=== PATIENT | female | born 1955 | race Caucasian/White ===

== ENCOUNTER 2016-11-10 08:42 | Emergency (ER) | payer BC ==
--- NOTE | 2016-11-10 09:11 | UC ---
Throat Pain/Nasal [place] HPI - HPI Summary HPI Summary: Patient started with 5 days of sore throat, symptoms now include sinus congestion and muffled hearing in the right ear. doesnt think she has had a fever, but no energy. - History of Current Complaint Stated Complaint: SORE THROAT, RESPIRATORY Time Seen by Provider: 11/10/16 09:00 Hx Obtained From: Patient ?: No Onset/Duration: Sudden Onset, Lasting Days Severity: Severe Associated Signs & Symptoms: Positive: Dysphagia, Hoarseness, Sinus Discomfort, Nasal Discharge - Epiglottits Risk Factors Epiglottis Risk Factors: Negative - Allergies/Home Medications Allergies/Adverse Reactions: Allergies Allergy/AdvReac Type Severity Reaction Status Date / Time No Known Allergies Allergy Verified 05/14/13 13:07 PMH/Surg Hx/FS Hx/Imm Hx Previously Healthy: Yes - Surgical History Surgical History: Yes Surgery Procedure, Year, and Place: right ovary - Family History Known Family History: Positive: Hypertension - Social History Substance Use Type: None Review of Systems Constitutional: Fatigue Skin: Negative Eyes: Negative ENT: Sore Throat, Ear Ache, Nasal Discharge Respiratory: Cough Cardiovascular: Negative Gastrointestinal: Negative Genitourinary: Negative Motor: Negative Musculoskeletal: Myalgia Neurological: Headache Psychological: Negative All Other Systems Reviewed And Are Negative: Yes Physical Exam Triage Information Reviewed: Yes Appearance: Well-Nourished, Ill-Appearing, Pain Distress Vital Signs Reviewed: Yes Eye Exam: Normal Eyes: Positive: Conjunctiva Clear ENT: Positive: Pharyngeal erythema, Nasal congestion, Nasal drainage, TM bulging , TM dull, TM red - right ear, Muffled/hoarse voice Dental Exam: Normal Neck exam: Normal Neck: Positive: Supple, Nontender, No Lymphadenopathy Respiratory Exam: Normal Respiratory: Positive: Chest non-tender, No respiratory distress, No accessory muscle use, Wheezing, Inspiration Cardiovascular Exam: Normal Cardiovascular: Positive: No Murmur, Pulses Normal Abdominal Exam: Normal Abdomen Description: Positive: Nontender, No Organomegaly, Soft Bowel Sounds: Positive: Present Musculoskeletal Exam: Normal Musculoskeletal: Positive: Strength Intact, ROM Intact, No Edema Neurological Exam: Normal Neurological: Positive: Alert, Muscle Tone Normal Psychological Exam: Normal Skin Exam: Normal Throat Pain/Nasal Course/Dx - Course Course Of Treatment: hx obtained, exam performed, meds reviewed, treated for sinusitis and otitis media, with wheezing - Differential Dx/Diagnosis Differential Diagnosis/HQI/PQRI: Influenza, Laryngitis, Otitis Media, Pharyngitis, Sinusitis Provider Diagnoses: sinsusitis. right otitis media Discharge - Discharge Plan Condition: Stable Disposition: HOME Prescriptions: Amoxicillin/Clavulanate TAB* [Augmentin TAB 875*] 875 mg PO BID #20 tab predniSONE TAB* [Deltasone TAB*] 40 mg PO DAILY #10 tab Patient Education Materials: Sinusitis (ED), Warm Compress or Soak (ED) Additional Instructions: 1. take the medications as prescribed. 2. Increase your fluid intake and get plenty of rest 3. follow up with any worsening symptoms.
[2016-11-10 09:22] VITALS: BP 120/85
== END 2016-11-10 09:42 | disposition home or self-care (01) ==
LOC: UCCORT 08:42
DX: J32.9 Chronic sinusitis, unspecified (principal); H66.91 Otitis media, unspecified, right ear
CPT/HCPCS: 99202; G0463

== ENCOUNTER 2018-07-24 07:05 | Emergency (ER) | payer BC ==
[2018-07-24 07:38] VITALS: BP 128/75
--- NOTE | 2018-07-24 07:48 | UC ---
Respiratory Complaint HPI - HPI Summary HPI Summary: cough x 2 days yellow sputum, nasal congestion , pnd no fever, no chills , no sob - History of Current Complaint Chief Complaint: UCGeneralIllness Stated Complaint: CONGESTION,COUGH Time Seen by Provider: 07/24/18 07:42 Hx Obtained From: Patient Onset/Duration: Gradual Onset, Lasting Days - 2, Still Present Timing: Constant Severity Initially: Moderate Severity Currently: Moderate Pain Intensity: 0 Character: Cough: Productive Aggravating Factors: Exertion, Deep Breaths Alleviating Factors: Nothing Associated Signs And Symptoms: Positive: URI, Nasal Congestion. Negative: Dyspnea, Fever, Chills, Wheezing, Hemoptysis, Dizziness, Calf Pain, Calf Swelling, Hoarseness, Sinus Discomfort - Allergies/Home Medications Allergies/Adverse Reactions: Allergies Allergy/AdvReac Type Severity Reaction Status Date / Time No Known Allergies Allergy Verified 07/24/18 07:29 Home Medications: Home Medications Ascorbic Acid TAB* [Vitamin C TAB*] 500 mg PO DAILY 07/24/18 [History Confirmed 07/24/18] Ibuprofen TAB* [Motrin TAB* 400 MG] 400 mg PO Q6H PRN 07/24/18 [History Confirmed 07/24/18] Nebivolol HCl [Bystolic] 2.5 mg PO DAILY 07/24/18 [History Confirmed 07/24/18] PMH/Surg Hx/FS Hx/Imm Hx Endocrine History: Thyroid Disease Cardiovascular History: Hypertension - Surgical History Surgical History: Yes Surgery Procedure, Year, and Place: right ovary - Family History Known Family History: Positive: Hypertension - Social History Alcohol Use: Daily Alcohol Amount: 1-2 glasses of red wine Substance Use Type: None Smoking Status (MU): Former Smoker Type: Cigarettes Amount Used/How Often: 1/2-3/4 pack daily Have You Smoked in the Last Year: No Review of Systems All Other Systems Reviewed And Are Negative: Yes Constitutional: Positive: Negative Skin: Positive: Negative Eyes: Positive: Negative ENT: Positive: Nasal Discharge Respiratory: Positive: Cough Cardiovascular: Positive: Negative Is Patient Immunocompromised?: No Physical Exam Triage Information Reviewed: Yes Appearance: Well-Appearing, No Pain Distress, Well-Nourished Vital Signs: Initial Vital Signs Temp 98.4 F 07/24/18 07:32 Pulse 72 07/24/18 07:32 Resp 16 07/24/18 07:32 BP 128/75 02/15/19 07:32 Pulse Ox 97 07/24/18 07:32 Vital Signs Reviewed: Yes Eye Exam: Normal Eyes: Positive: Conjunctiva Clear ENT: Positive: Normal ENT inspection, Hearing grossly normal, Pharynx normal, Nasal congestion Neck: Positive: Supple, Nontender, No Lymphadenopathy Respiratory: Positive: Chest non-tender, Lungs clear, Normal breath sounds Cardiovascular: Positive: RRR, No Murmur, Pulses Normal Skin Exam: Normal UC Diagnostic Evaluation - Laboratory O2 Sat by Pulse Oximetry: 97 Respiratory Course/Dx - Differential Dx/Diagnosis Provider Diagnosis: URI (upper respiratory infection) Discharge - Sign-Out/Discharge Documenting (check all that apply): Patient Departure All imaging exams completed and their final reports reviewed: No Studies - Discharge Plan Condition: Stable Disposition: HOME Patient Education Materials: Upper Respiratory Infection (DC) Referrals: Lance Cantrell MD [Primary Care Provider] - If Needed - Billing Disposition and Condition Condition: STABLE Disposition: Home
== END 2018-07-24 07:50 | disposition home or self-care (01) ==
LOC: UCCORT 07:05
DX: J06.9 Acute upper respiratory infection, unspecified (principal); Z87.891 Personal history of nicotine dependence
CPT/HCPCS: 99211; G0463

== ENCOUNTER 2018-09-30 15:35 | Emergency (ER) | payer BC, OTHER ==
--- OUTSIDE RECORDS SUMMARY | 2018-09-30 15:49 | XMS REPORT | Continuity of Care Document ---
:1955 External Reference #:[id number] Author Name Kamryn Phelps Care Team Providers Name Role Phone Lance Cantrell MD Primary Care Physician Unavailable Payers Date Identification Numbers Payment Provider Subscriber Effective: 2004 Policy Number: [id number] [facility] Brennon Fuentes Group Name: [facility] [address] PayID: [id number] [place] [address] Advance Directives Description No Information Available Problems Active Problems Provider Date Osteoarthritis Onset: 04/22/2011 Essential hypertension Onset: 04/22/2011 Asthma without status asthmaticus Onset: 04/22/2011 Shoulder joint pain Onset: 04/22/2011 Disorder of bursa of shoulder region Onset: 04/22/2011 Goiter Onset: 04/22/2011 Family History Description No Information Available Social History Type Date Description Comments Sex Unknown Marital Status Lives With Spouse Occupation Full-Time Employment ETOH Use Occasionally consumes alcohol ETOH Use Occasionally consumes wine ETOH Use Consumes 1 bottle of wine per week Tobacco Use Start: Unknown End: Unknown Patient is a former smoker Smoking Status Reviewed: 09/29/18 Patient is a former smoker Allergies, Adverse Reactions, Alerts Description No Information Medications Active Medications SIG Qnty Indications Ordering Date Provider Betamethasone Dipropionate use two times 15gm L20.9 Lance 09/29/2018 0.05% a day MD Óscar Cream Clotrimazole use 3 times a 15gm L20.9 Lance 09/29/2018 1% Cream day MD Óscar Hydrochlorothiazide 1 by mouth 90tabs I10 Lance 12/30/2017 50mg Tablets every day MD Óscar Bystolic 1 by mouth 30tabs I10 12/30/2017 10mg Tablets every day MD Óscar Amlodipine Besylate 1 by mouth 30tabs I10 Lance 02/03/2017 5mg Tablets every day MD Óscar Levothyroxine Sodium 1 by mouth 90tabs E03.9 Lance 01/04/2016 175mcg Tablets every day MD Óscar Vitamin D3 1 by mouth 30tabs E55.9 Lance 01/04/2016 5000Unit Tablets every day MD Óscar Potassium Chloride ER 1 every day 90tabs I10 Lance 07/10/2011 10Meq Tablets MD Óscar ER Aspir-81 1 po qd 90tabs Eek 06/17/[address] Óscar MD [place] 3 1 tab by Unknown 1000mg Capsules mouth twice a day Vitamin C 1 by mouth Unknown 500mg Capsules every day History Medications Benzonatate 1 by mouth 30caps R05 Eek 08/24/2018 - 200mg Capsules three times a MD Óscar 09/29/2018 day Tessalon Perles R05 Eek 08/24/2018 - 100mg MD Óscar 09/29/2018 Capsules Augmentin one pill 28tabs J01.00 Eek 08/24/2018 - 875-125mg Tablets twice a day MD Óscar 09/29/2018 with food Azithromycin 2 now and 1 6tabs J06.9 Lance 04/16/2017 - 250mg Tablets daily x 4 MD Óscar 10/23/2017 days Chantix 1 mg twice a 60tabs F17.210 Lance 12/02/2016 - 1mg Tablets day MD Óscar 10/23/2017 Losartan 1 by mouth 30tabs I10 Lance 12/02/2016 - Potassium/Hydrochlorothi every day MD Óscar 12/30/2017 azide 100-25mg Tablets Metoprolol Succinate ER 1 by mouth 90tabs I10 Lance 12/02/2016 - 100mg every day MD Óscar 12/30/2017 Tablets ER 24HR Chantix 1 by mouth 60tabs F17.210 Lance 07/18/2015 - 1mg Tablets twice a day MD Óscar 01/04/2016 Augmentin one twice a 28tabs J01.00 Lance 04/13/2015 - 875-125mg Tablets day withfood MD Óscar 07/18/2015 Clotrimazole/Betamethaso use three 45units 117.9 Lance 01/04/2015 - ne Dipropionate times a day MD Óscar 02/01/2015 1-0.05% Cream until clear at least 2 weeks Guaifenesin ER 1 by mouth 30tabs 461.9 Lance 03/09/2014 - 600mg Tablets twice a day MD Óscar 03/23/2014 ER 12HR Azithromycin 2 now and 1 6tabs 461.9 Lance 03/09/2014 - 250mg Tablets daily x 4 MD Óscar 03/23/2014 days Losartan Potassium take 1 tablet 90tabs I10 Lance 02/21/2014 - 100mg by mouth once MD Óscar 12/02/2016 Tablets daily Azithromycin 2 now and 1 6tabs 461.8 Lance 10/05/2013 - 250mg Tablets daily x 4 MD Óscar 11/22/2013 days then wait 5 days and repeat the course again Levothyroxine Sodium 1 by mouth 90tabs E03.9 Lance 10/05/2013 - 150mcg every day MD Óscar 01/04/2016 Tablets Hydrochlorothiazide one every day 90tabs I10 Lance 08/10/2013 - 25mg MD Óscar 12/02/2016 Tablets Amoxicillin/Clavulanate 1 po bid with 20tabs 461.8 Lance 07/13/2013 - Potassium food MD Óscar 08/10/2013 875-125mg Tablets Cozaar 1 po qd 90tabs 401.9 Lance 07/13/2013 - 100mg Tablets MD Óscar 01/04/2015 Valsartan-Hydrochlorothi take 1 tablet 90tabs Lance 07/12/2013 - azide by mouth once MD Óscar 07/13/2013 160-25mg Tablets daily Metoprolol Succinate ER 1 by mouth 90tabs I10 Lance 01/12/2013 - 50mg every day MD Óscar 12/02/2016 Tablets ER 24HR Bystolic 1 po qd 90tabs 401.9 Lance 01/11/2013 - 2.5mg Tablets MD Óscar 01/12/2013 Chantix 1 mg twice a 60tabs 305.1 Lance 07/13/2012 - 1mg Tablets day MD Óscar 08/03/2014 Chantix Starting Month as directed 1tabs 305.1 Lance 07/13/2012 - Edin MD Óscar 01/31/2014 0.5mg X 11 & 1 mg X 42 Tablets Bupropion HCL ER (XL) 1 po qd 30tabs 305.1 Lance 01/08/2012 - 150mg MD Óscar 07/13/2012 Tablets ER 24HR Vitamin D3 2 by mouth 90caps E55.9 Lance 07/11/2011 - 2000Unit Capsules every day MD Óscar 01/04/2016 Levothyroxine Sodium take 1 tablet 90tabs 244.9 Lance 07/10/2011 - 100mcg by mouth once MD Óscar 12/18/2012 Tablets daily Biaxin XL 1 bid x 14 28tabs 461.9 Lance 06/17/2011 - 500mg Tablets ER days MD Óscar 09/25/2011 24HR Mucinex 2 po bid 60tabs 461.9 Lance 06/17/2011 - 600mg Tablets ER 12HR MD Óscar 09/25/2011 Diovan HCT take 1 tablet 90tabs 401.9 Lance 06/17/2011 - 160-25mg Tablets once daily MD Óscar 08/10/2013 Levothyroxine Sodium take 1 tablet 90tabs 244.9 Lance 05/14/2011 - 75mcg once daily MD Óscar 07/10/2011 Tablets Zithromax Z-Edin as directed 1tabs Lance 04/22/2011 - 250mg Tablets MD Óscar 06/17/2011 Prednisone take 2 Unknown - 20mg Tablets tablets by 12/02/2016 mouth daily Amoxicillin/Clavulanate take 1 tablet Unknown - Potassium by mouth 12/02/2016 875-125mg Tablets twice a day Immunizations CPT Code Status Date Vaccine Lot # [id number] Given 02/01/2015 Pneumococcal Conjugate Vaccine 13 Valent For Intramuscular Use 34520 Given 03/23/2014 Influenza Virus 3Yrs & Over 02739 Given 05/31/2013 Influenza Virus 3Yrs & Over 33081 Given 02/24/2012 Influenza Virus 3Yrs & Over 44317 Given 06/17/2011 Tdap - Tetanus/Diptheria/Acellular Pertussis 57799 Given 03/04/2011 Influenza Virus 3Yrs & Over 79144 Given 03/08/2010 Influenza Virus 3Yrs & Over 06357 Given 03/13/2009 Influenza Virus 3Yrs & Over 77454 Given 05/12/2008 Influenza Virus 3Yrs & Over 34994 Given 04/15/2007 Influenza Virus 3Yrs & Over 51703 Given 08/04/2006 Influenza Virus 3Yrs & Over 92583 Given 06/22/2003 Influenza Virus 3Yrs & Over Vital Signs Date Vital Result Comment 09/29/2018 4:27pm Weight 240.50 lb Heart Rate 65 /min BP Systolic 118 mmHg BP Diastolic 88 mmHg Body Temperature 98.0 F O2 % BldC Oximetry 97 % 08/24/2018 3:02pm Weight 243.00 lb Heart Rate 59 /min Body Temperature 98.7 F O2 % BldC Oximetry 98 % 04/21/2018 4:07pm Height 65.5 inches Heart Rate 64 /min BP Systolic 138 mmHg BP Diastolic 68 mmHg Respiratory Rate 16 /min 12/30/2017 12:01pm Weight 240.00 lb BP Systolic 122 mmHg BP Diastolic 80 mmHg 12/12/2017 9:30am Weight 240.00 lb Heart Rate 68 /min BP Systolic 110 mmHg BP Diastolic 72 mmHg Respiratory Rate 18 /min 10/23/2017 3:29pm BP Systolic 138 mmHg BP Diastolic 82 mmHg 04/16/2017 3:51pm Height 65.75 inches Weight 216.00 lb Heart Rate 72 /min BP Systolic 118 mmHg BP Diastolic 82 mmHg Respiratory Rate 16 /min BMI (Body Mass Index) 35.1 kg/m2 02/03/2017 10:48am Weight 216.00 lb BP Systolic 118 mmHg BP Diastolic 86 mmHg 12/02/2016 8:57am Weight 218.00 lb BP Systolic 120 mmHg BP Diastolic 90 mmHg 04/15/2016 3:56pm Height 65.75 inches Weight 219.00 lb Heart Rate 72 /min BP Systolic 140 mmHg BP Diastolic 98 mmHg Respiratory Rate 16 /min Body Temperature 97.8 F BMI (Body Mass Index) 35.6 kg/m2 01/04/2016 2:33pm Weight 213.50 lb BP Systolic 100 mmHg BP Diastolic 62 mmHg 07/18/2015 3:04pm Weight 213.00 lb BP Systolic 126 mmHg BP Diastolic 80 mmHg 04/13/2015 9:22am Weight 209.00 lb BP Systolic 126 mmHg BP Diastolic 76 mmHg Body Temperature 99.0 F 02/01/2015 1:04pm Height 64.75 inches Weight 216.50 lb Heart Rate 72 /min BP Systolic 120 mmHg BP Diastolic 80 mmHg Respiratory Rate 16 /min Body Temperature 97.7 F BMI (Body Mass Index) 36.3 kg/m2 01/04/2015 8:51am Weight 217.50 lb BP Systolic 110 mmHg BP Diastolic 82 mmHg 08/03/2014 3:31pm Weight 231.00 lb BP Systolic 110 mmHg BP Diastolic 70 mmHg 03/23/2014 3:50pm BP Systolic 135 mmHg BP Diastolic 88 mmHg 01/31/2014 11:13am Height 65 inches Weight 213.00 lb Heart Rate 68 /min BP Systolic 108 mmHg BP Diastolic 84 mmHg Respiratory Rate 16 /min Body Temperature 97.6 F BMI (Body Mass Index) 35.4 kg/m2 11/22/2013 4:18pm BP Systolic 118 mmHg BP Diastolic 78 mmHg 10/05/2013 11:38am Weight 215.00 lb BP Systolic 110 mmHg BP Diastolic 80 mmHg 08/10/2013 3:02pm Weight 216.00 lb BP Systolic 110 mmHg BP Diastolic 80 mmHg 07/13/2013 10:39am Weight 211.00 lb BP Systolic 110 mmHg BP Diastolic 80 mmHg Body Temperature 97.5 F 01/11/2013 10:24am Height 65.50 inches Weight 218.50 lb Heart Rate 64 /min BP Systolic 120 mmHg BP Diastolic 92 mmHg Respiratory Rate 14 /min Body Temperature 97.6 F BMI (Body Mass Index) 35.8 kg/m2 11/11/2012 4:01pm Height 64.75 inches BP Systolic 120 mmHg BP Diastolic 88 mmHg BMI (Body Mass Index) 20.1 kg/m2 01/08/2012 8:24am Height 64.75 inches Weight 214.00 lb Heart Rate 68 /min BP Systolic 120 mmHg BP Diastolic 60 mmHg Respiratory Rate 16 /min Body Temperature 98.2 F BMI (Body Mass Index) 35.9 kg/m2 09/23/2011 4:08pm BP Systolic 100 mmHg BP Diastolic 74 mmHg 06/17/2011 9:45am Weight 213.50 lb BP Systolic 124 mmHg BP Diastolic 84 mmHg Body Temperature 97.3 F Results Test Date Facility Test Result H/L Range Note Microalbumin,[place] 12/31/2017 N2N/[facility] Import Microalbumin,Urin 43.5 mg/L 1 om Urine e Lyme Igg & Igm By 12/31/2017 N2N/CCD Import Lyme AB Igg By . Western Blot Western Blot Lyme AB Igm By Western Blot . Lyme Igg WB Interpretation Negative 2 Lyme Igm WB Interpretation Negative 3 P18 AB Absent P23 AB Present Abnormal P23 AB Absent P28 AB Absent P30 AB Absent P39 AB Absent P39 AB Absent P41 AB Absent P41 AB Absent P45 AB Absent P58 AB Absent P66 AB Absent P93 AB Absent Laboratory test 12/31/2017 N2N/CCD Import Ebv AB Vca,Igg 503.0 U/mL High 0-17.9 4 finding Ebv AB Vca,Igm <36.0 U/mL 0-35.9 5 Ebv Early Antigen AB, IgG 101.0 U/mL High 0-8.9 6 Ebv Interpretation (See Note) 7 Ebv Nuclear Antigen AB, Igg 98.2 U/mL High 0-17.9 8 T3 Uptake 39 % 31-39 T7 5.11 g/dL 5-12 Thyroid Stim Hormone 1.25 uIU/mL 0.3-4.2 Thyroxine (T4) 13.1 g/dL 4.7-13.3 CBC 12/31/2017 N2N/CCD Import Hematocrit 40.7 % 36-46.1 Hemoglobin 13.4 gm/dL 11.6-15.8 Mean Cell Volume 94.4 fl 80.9-99 Mean Corpuscular HGB 31.1 pg 25.9-32.7 Mean Corpuscular HGB Conc 32.9 g/dL 30.8-34.3 Mean Platelet Volume 9.9 fL 8.9-12.4 Platelet Count 255 K/uL 155-360 Red Blood Count 4.31 M/uL 3.9-5.4 Red Cell Distri Width %CV 12.9 % 11.7-14.4 White Blood Count 6.4 K/uL 3.1-10.7 LDL Cholesterol Profile 12/31/2017 N2N/CCD Import Cholesterol 210 mg/dL High 9 HDL Cholesterol 48 mg/dL 10 LDL-Cholesterol 124 mg/dL 11 Triglycerides 192 mg/dL High 12 Comprehensive Metabolic Panel 12/31/2017 N2N/CCD Import Alb/Glob 0.9 ratio Albumin 3.6 g/dL 3.4-5 Alkaline Phosphatase 76 U/L 45-117 Anion Gap 6 mEq/L Low 8-16 BUN 9 mg/dL 7-18 BUN/Creat 15.0 ratio Bilirubin,Total 0.6 mg/dL 0.2-1 Calcium 8.7 mg/dL 8.5-10.1 Carbon Dioxide 30 mmol/L 21-32 Chloride 104 mmol/L 98-107 Creatinine 0.6 mg/dL 0.6-1.3 Globulin 3.9 g/dL 1.9-4.3 Glom Filtration Rate, Estimate >60 mL/min Glucose 104 mg/dL 74-106 If >60 mL/min 13 Potassium 4.6 mmol/L 3.5-5.1 SGPT/Alt 19 U/L 12-78 Sgot/Ast 50 U/L High 15-37 Sodium 140 mmol/L 136-145 Total Protein 7.5 g/dL 6.4-8.2 Imaging finding 12/16/2016 N2N/CCD Import Lt hip Xray <pending> Rt hip Xray <pending> LDL Cholesterol Profile 11/28/2016 N2N/CCD Import Cholesterol 170 mg/dL 14, 15 HDL Cholesterol 36 mg/dL Low 16 LDL-Cholesterol 88 mg/dL 17 Reflex add FT3? N Reflex add FT4? Y Triglycerides 230 mg/dL High 18 Laboratory test 11/28/2016 N2N/CCD Import Hepatitis C 0.1 s/corat 0-0.9 19 finding Antibody Reflex add FT3? N Reflex add FT4? Y Thyroid Stim Hormone 1.13 uIU/mL 0.3-4.2 Vitamin D,25-Hydroxy 40.7 ng/mL 30-100 20 Comprehensive Metabolic Panel 11/28/2016 N2N/CCD Import Alb/Glob 0.8 ratio Albumin 3.0 g/dL Low 3.4-5 Alkaline Phosphatase 81 U/L 45-117 Anion Gap 6 mEq/L Low 8-16 BUN 7 mg/dL 7-18 BUN/Creat 14.0 ratio Bilirubin,Total 0.5 mg/dL 0.2-1 Calcium 8.5 mg/dL 8.5-10.1 Carbon Dioxide 30 mmol/L 21-32 Chloride 102 mmol/L 98-107 Creatinine 0.5 mg/dL Low 0.6-1.3 Globulin 3.9 g/dL 1.9-4.3 Glom Filtration Rate, Estimate >60 mL/min Glucose 103 mg/dL 74-106 If >60 mL/min 21 Potassium 3.8 mmol/L 3.5-5.1 Reflex add FT3? N Reflex add FT4? Y SGPT/Alt 27 U/L 12-78 Sgot/Ast 54 U/L High 15-37 Sodium 138 mmol/L 136-145 Total Protein 6.9 g/dL 6.4-8.2 CBC 11/28/2016 [employer] Import Hematocrit 40.5 % 36-46.1 Hemoglobin 13.8 gm/dL 11.6-15.8 Mean Cell Volume 94.0 fl 80.9-99 Mean Corpuscular HGB 32.0 pg 25.9-32.7 Mean Corpuscular HGB Conc 34.1 g/dL 30.8-34.3 Mean Platelet Volume 9.5 fL 8.9-12.4 Platelet Count 290 K/uL 150-400 Red Blood Count 4.31 M/uL 3.9-5.4 Red Cell Distri Width %CV 12.9 % 11.7-14.4 White Blood Count 7.9 K/uL 3.1-10.7 Laboratory test 04/10/2016 N2N/[employer] Import Thyroid Stim 1.25 uIU/mL 0.3- 4.2 22 finding Hormone Vitamin D,25-Hydroxy 38.1 ng/mL 30-100 23 LDL Cholesterol Profile 12/06/2015 [employer] Import Cholesterol 199 mg/dL 24 HDL Cholesterol 38 mg/dL Low 25 LDL-Cholesterol 117 mg/dL 26 Triglycerides 219 mg/dL High 27 Laboratory test 12/06/2015 [employer] Import Thyroid Stim 4.34 uIU/mL High 0.3-4.2 finding Hormone Vitamin D,25-Hydroxy 29.8 ng/mL Low 30-100 28 CBC 12/06/2015 N2N/[employer] Import Hematocrit 43.5 % 36-46.1 Hemoglobin 15.0 gm/dL 11.6-15.8 Mean Cell Volume 93.3 fl 80.9-99 Mean Corpuscular HGB 32.2 pg 25.9-32.7 Mean Corpuscular HGB Conc 34.5 g/dL High 30.8-34.3 Mean Platelet Volume 9.2 fL 8.9-12.4 Platelet Count 290 K/uL 155-360 Red Blood Count 4.66 M/uL 3.9-5.4 Red Cell Distri Width %CV 13.3 % 11.7-14.4 White Blood Count 7.3 K/uL 3.1-10.7 Comprehensive Metabolic Panel 12/06/2015 N2N/[employer] Import Alb/Glob 0.9 ratio Albumin 3.4 g/dL 3.4-5 Alkaline Phosphatase 71 U/L 45-117 Anion Gap 4 mEq/L Low 8-16 BUN 6 mg/dL Low 7-18 BUN/Creat 12.0 ratio Bilirubin,Total 0.5 mg/dL 0.2-1 Calcium 8.3 mg/dL Low 8.5-10.1 Carbon Dioxide 31 mmol/L 21-32 Chloride 100 mmol/L 98-107 Creatinine 0.5 mg/dL Low 0.6-1.3 Globulin 3.6 g/dL 1.9-4.3 Glom Filtration Rate, Estimate >60 mL/min Glucose 96 mg/dL 74-106 If >60 mL/min 29 Potassium 4.2 mmol/L 3.5-5.1 SGPT/Alt 19 U/L 12-78 Sgot/Ast 59 U/L High 15-37 Sodium 135 mmol/L Low 136-145 Total Protein 7.0 g/dL 6.4-8.2 Laboratory test 09/06/2014 N2N/[employer] Import Thyroid Stim 1.55 uIU/mL 0.36- 3.74 finding Hormone Vitamin D,25-Hydroxy 29.0 ng/mL Low 30-100 30 LDL Cholesterol Profile 09/06/2014 N2N/[employer] Import Cholesterol 212 mg/dL 31 HDL Cholesterol 41 mg/dL 32 LDL-Cholesterol 122 mg/dL 33 Triglycerides 244 mg/dL 34 Comprehensive Metabolic Panel 09/06/2014 [facility]2N/[employer] Import Alb/Glob 1.1 ratio Albumin 3.5 g/dL 3.4-5 Alkaline Phosphatase 69 U/L 45-117 Anion Gap 4 mEq/L Low 8-16 BUN 10 mg/dL 7-18 BUN/Creat 16.6 ratio Bilirubin,Total 0.4 mg/dL 0.2-1 Calcium 8.6 mg/dL 8.5-10.1 Carbon Dioxide 33 mmol/L High 21-32 Chloride 101 mmol/L 98-107 Creatinine 0.6 mg/dL 0.6-1.3 Globulin 3.3 g/dL 1.9-4.3 Glom Filtration Rate, Estimate >60 mL/min Glucose 111 mg/dL High 74-106 If >60 mL/min 35 Potassium 4.7 mmol/L 3.5-5.1 SGPT/Alt 16 U/L 12-78 Sgot/Ast 60 U/L High 15-37 Sodium 138 mmol/L 136-145 Total Protein 6.8 g/dL 6.4-8.2 Laboratory test 09/20/2013 [employer] Import C-Reactive 6.00 mg/L High 0-3 36 finding Protein,Cardiac Homocyst(E)Ine, Plasma 10.1 umol/L 0-15 37 Thyroid Stim Hormone 6.20 uIU/mL High 0.49-4.67 Vitamin D,25-Hydroxy 27.8 ng/mL Low 30-100 38 Comprehensive Metabolic Panel 09/20/2013 [employer] Import Alb/Glob 1.0 ratio Albumin 3.6 g/dL 3.5-5 Alkaline Phosphatase 70 U/L 50-136 Anion Gap 10 mEq/L 8-16 BUN 11 mg/dL 5-23 BUN/Creat 22.0 ratio Bilirubin,Total 0.5 mg/dL 0.2-1.2 Calcium 9.0 mg/dL 8.5-10.1 Carbon Dioxide 30 mEq/L High 18-29 Chloride 101 mmol/L 98-107 Creatinine 0.5 mg/dL 0.5-1.4 Globulin 3.7 g/dL 1.9-4.3 Glom Filtration Rate, Estimate >60 mL/min Glucose 107 mg/dL 76-115 If >60 mL/min 39 Potassium 4.0 mmol/L 3.5-5.1 SGPT/Alt 20 U/L Low 30-65 Sgot/Ast 75 U/L High 16-40 Sodium 137 mmol/L 136-145 Total Protein 7.3 g/dL 6.3-8 LDL Cholesterol 09/20/2013 [employer] Import Cholesterol 224 mg/dL High 120- 200 Profile HDL Cholesterol 39 mg/dL 29-83 LDL-Cholesterol 139 mg/dL 62-185 Triglycerides 230 mg/dL 16-231 Laboratory test 08/10/2013 [employer] Import Throat Strep See Note 40 finding Screen Laboratory test 12/17/2012 N2N/CCD Import C-Reactive 5.98 mg/L High 0-3 41 finding Protein,Cardiac Thyroid Stim Hormone 5.26 uIU/mL High 0.49-4.67 Vitamin D,25-Hydroxy 26.1 ng/mL Low 30-100 42 Comprehensive Metabolic Panel 12/17/2012 N2N/CCD Import Alb/Glob 0.8 ratio Albumin 3.3 g/dL Low 3.5-5 Alkaline Phosphatase 73 U/L 50-136 Anion Gap 12 mEq/L 8-16 BUN 7 mg/dL 5-23 BUN/Creat 11.6 ratio Bilirubin,Total 0.5 mg/dL 0.2-1.2 Calcium 8.7 mg/dL 8.5-10.1 Carbon Dioxide 31 mEq/L High 18-29 Chloride 102 mmol/L 98-107 Creatinine 0.6 mg/dL 0.5-1.4 Globulin 4.0 g/dL 1.9-4.3 Glom Filtration Rate, Estimate >60 mL/min Glucose 102 mg/dL 76-115 If >60 mL/min 43 Potassium 4.1 mmol/L 3.5-5.1 SGPT/Alt 17 U/L Low 30-65 Sgot/Ast 62 U/L High 16-40 Sodium 141 mmol/L 136-145 Total Protein 7.3 g/dL 6.3-8 LDL Cholesterol 12/17/2012 N2N/CCD Import Cholesterol 223 mg/dL High 120- 200 Profile HDL Cholesterol 35 mg/dL 29-83 LDL-Cholesterol 136 mg/dL 62-185 Triglycerides 258 mg/dL High 16-231 Laboratory test finding 02/03/2012 N2N/CCD Import BUN 7 mg/dL 6-24 Creatinine 0.6 mg/dL 0.5-1.4 One Over Creatinine 1.66 1 eGFR 133.0 1 44 eGFR Non- 103.4 1 Laboratory test 10/09/2011 N2N/CCD Import Thyroid Stim 4.48 uIU/mL 0.49- 4.67 finding Hormone Vitamin D,25-Hydroxy 25.3 ng/mL Low 30-100 45 Comprehensive Metabolic Panel 07/09/2011 N2N/CCD Import Alb/Glob 1.0 ratio Albumin 3.9 g/dL 3.5-5 Alkaline Phosphatase 57 U/L 50-136 Anion Gap 11 mEq/L 8-16 BUN 12 mg/dL 5-23 BUN/Creat 20.0 ratio Bilirubin,Total 0.2 mg/dL 0.2-1.2 Calcium 9.2 mg/dL 8.5-10.1 Carbon Dioxide 30 mEq/L High 18-29 Chloride 98 mmol/L 98-107 Creatinine 0.6 mg/dL 0.5-1.4 Globulin 4.0 g/dL 1.9-4.3 Glom Filtration Rate, Estimate >60 mL/min Glucose 109 mg/dL 76-115 If >60 mL/min 46 Potassium 3.2 mmol/L Low 3.5-5.1 SGPT/Alt 21 U/L Low 30-65 Sgot/Ast 60 U/L High 16-40 Sodium 136 mmol/L 136-145 Total Protein 7.9 g/dL 6.3-8 Laboratory test 07/09/2011 N2N/CCD Import Thyroid Stim 5.06 uIU/mL High 0.49-4.67 finding Hormone Vitamin D,25-Hydroxy 20.9 ng/mL Low 30-100 47 CBC W/Automated Diff 07/09/2011 N2N/CCD Import Bas% 1.0 % 0-1.1 Baso # 0.08 K/uL 0-0.1 Eo% 3.3 % 0-6.6 Eos # 0.26 K/uL 0-0.5 Hematocrit 42.4 % 36-46.1 Hemoglobin 14.1 gm/dL 11.6-15.8 Lymph # 2.18 K/uL 0.8-3.4 Lymph % 27.6 % 17-46.1 Mean Cell Volume 91.0 fl 80.9-99 Mean Corpuscular HGB 30.3 pg 25.9-32.7 Mean Corpuscular HGB Conc 33.3 g/dL 30.8-34.3 Mean Platelet Volume 9.9 fL 8.9-12.4 [place] # 0.43 K/uL 0.3-0.9 [place] % 5.4 % 4.3-13.2 Neut# 4.95 K/uL 1-7 Neut% 62.7 % 40.4-72.8 Platelet Count 313 K/uL 155-360 Red Blood Count 4.66 M/uL 3.9-5.4 Red Cell Distri Width %CV 13.1 % 11.7-14.4 Red Cell Distri Width SD 42.9 fl 3-47 White Blood Count 7.9 K/uL 3.1-10.7 1 I10 R53.83 2 Positive: 5 of the following Borrelia-specific bands: 18,23,28,30,39,41,45,58, 66, and 93. Negative: No bands or banding patterns which do not meet positive criteria. 3 Note: An equivocal or positive EIA result followed by a negative Western Blot result is considered NEGATIVE. An equivocal or positive EIA result followed by a positive Western Blot is considered POSITIVE by the CDC. Positive: 2 of the following bands: 23,39 or 41 Negative: No bands or banding patterns which do not meet positive criteria. Criteria for positivity are those recommended by CDC/ASTPHLD. p23=Osp C, t70=oabgencdo Note: Sera from individuals with the following may cross react in the [place] Western Blot assays: other spirochetal diseases (periodontal disease, leptospirosis, relapsing fever, yaws, and pinta); connective autoimmune (Rheumatoid Arthritis and Systemic Lupus Erythematosus and also individuals with Antinuclear Antibody); other infections ([place] Spotted Fever; Joseph-Chatterjee Virus, and Cytomegalovirus). Performed at: - [facility] [address] [id number] Postal Support Employee: Sonali Lacey MD, Phone: [phone] 4 Negative <18.0 Equivocal 18.0 - 21.9 Positive >21.9 5 Negative <36.0 Equivocal 36.0 - 43.9 Positive >43.9 6 Hepatitis A, Hepatitis C and HIV antibodies may cross-react with this assay. Negative < 9.0 Equivocal 9.0 - 10.9 Positive >10.9 7 EBV Interpretation Chart Interpretation EBV-IgM EA(D)-IgG VCA-IgG EBNA-IgG EBV Seronegative - - - - Early Phase + - - - Acute Primary + +or- + - Infection Convalescence/Past - +or- + + Infection Reactivated +or- + + + Infection + Antibody Present - Antibody Absent 8 Negative <18.0 Equivocal 18.0 - 21.9 Positive >21.9 9 Reference Guidelines*: Desirable: ........... < 200 mg/dL Borderline High: ..... 200-239 mg/dL High: ................ >=240 mg/dL * The National Cholesterol Education Program (NCEP) 10 Reference Guidelines*: Low HDL: ..... < 40 mg/dL Normal: ..... 40-60 mg/dL Desirable: ... > 60 mg/dL *The National Cholesterol Education Program(NCEP) 11 Reference Guidelines*: Optimal:........... <100 mg/dL Near Optimal....... 100-129 mg/dL Borderline High.... 130-159 mg/dL High............... 160-189 mg/dL Very High.......... >=190 mg/dL * Source: National Cholesterol Education Program (NCEP) 12 Reference Guidelines*: Normal: ............. < 150 mg/dL Borderline High: .... 150-199 mg/dL High: ............... 200-499 mg/dL Very High: .......... > 500 mg/dL * Source: National Cholesterol Education Program (NCEP) 13 Note: Persistent reduction for 3 months or more in an eGFR <60 mL/min/1.73 m2 defines CKD. Patients with eGFR values >/=60 mL/min/1.73 m2 may also have CKD if evidence of persistent proteinuria is present. The original MDRD equation for estimated GFR is not valid for patients less than 18 years of age. Additional information may be found at www.kdoqi.org. 14 Z11.9,I10,E78.5,E55.9,E03.9 15 Reference Guidelines*: Desirable: ........... < 200 mg/dL Borderline High: ..... 200-239 mg/dL High: ................ >=240 mg/dL * The National Cholesterol Education Program (NCEP) 16 Reference Guidelines*: Low HDL: ..... < 40 mg/dL Normal: ..... 40-60 mg/dL Desirable: ... > 60 mg/dL *The National Cholesterol Education Program(NCEP) 17 Reference Guidelines*: Optimal:........... <100 mg/dL Near Optimal....... 100-129 mg/dL Borderline High.... 130-159 mg/dL High............... 160-189 mg/dL Very High.......... >=190 mg/dL * Source: National Cholesterol Education Program (NCEP) 18 Reference Guidelines*: Normal: ............. < 150 mg/dL Borderline High: .... 150-199 mg/dL High: ............... 200-499 mg/dL Very High: .......... > 500 mg/dL * Source: National Cholesterol Education Program (NCEP) 19 INFCE Result Units: s/co ratio Negative: < 0.8 Indeterminate: 0.8 - 0.9 Positive: > 0.9 The CDC recommends that a positive HCV antibody result be followed up with a HCV Nucleic Acid Amplification test ([id number]). Performed at: [facility] [place] [id number] [employer] Employee: Sonali Lacey MD, Phone: [phone] Vitamin D deficiency has been defined by the [place] [employer] and an Endocrine Society practice guideline as a level of serum 25-OH vitamin D less than 20 ng/mL (1,2). The Endocrine Society went on to further define vitamin D insufficiency as a level between 21 and 29 ng/mL (2). 1. IOM ([place] [employer]). 2010. Dietary reference intakes for calcium and D. [place]: The National Academies Press. 2. Jose Luis MF, Linda NC, Corry NI, et al. Evaluation, treatment, and prevention of vitamin D deficiency: an Endocrine Society clinical practice guideline. JCEM. 2010; 96(7):1911-30. Performed at: [facility] [place] [id number] Postal Support Employee: Sonali Lacey MD, Phone: [phone] Note: Persistent reduction for 3 months or more in an eGFR <60 mL/min/1.73 m2 defines CKD. Patients with eGFR values >/=60 mL/min/1.73 m2 may also have CKD if evidence of persistent proteinuria is present. The original MDRD equation for estimated GFR is not valid for patients less than 18 years of age. Additional information may be found at www.kdoqi.org. 22 E03.9,E55.9 23 Vitamin D deficiency has been defined by the [place] and an Endocrine Society practice guideline as a level of serum 25-OH vitamin D less than 20 ng/mL (1,2). The Endocrine Society went on to further define vitamin D insufficiency as a level between 21 and 29 ng/mL (2). 1. IOM ([place]). 2010. Dietary reference intakes for calcium and D. [place]: The National Academies Press. 2. Jose Luis MF, Linda HUANG, Corry NI, et al. Evaluation, treatment, and prevention of vitamin D deficiency: an Endocrine Society clinical practice guideline. JCEM. 2010; 96(7):1911-30. Performed at: RN - [facility] [address] [id number] Postal Support Employee: Sonali Lacey MD, Phone: [phone] 24 Reference Guidelines*: Desirable: ........... < 200 mg/dL Borderline High: ..... 200-239 mg/dL High: ................ >=240 mg/dL * The National Cholesterol Education Program (NCEP) 25 Reference Guidelines*: Low HDL: ..... < 40 mg/dL Normal: ..... 40-60 mg/dL Desirable: ... > 60 mg/dL *The National Cholesterol Education Program(NCEP) 26 Reference Guidelines*: Optimal:........... <100 mg/dL Near Optimal....... 100-129 mg/dL Borderline High.... 130-159 mg/dL High............... 160-189 mg/dL Very High.......... >=190 mg/dL * Source: National Cholesterol Education Program (NCEP) 27 Reference Guidelines*: Normal: ............. < 150 mg/dL Borderline High: .... 150-199 mg/dL High: ............... 200-499 mg/dL Very High: .......... > 500 mg/dL * Source: National Cholesterol Education Program (NCEP) 28 Vitamin D deficiency has been defined by the [place] and an Endocrine Society practice guideline as a level of serum 25-OH vitamin D less than 20 ng/mL (1,2). The Endocrine Society went on to further define vitamin D insufficiency as a level between 21 and 29 ng/mL (2). 1. IOM ([place]). 2010. Dietary reference intakes for calcium and D. [place]: The National Academies Press. 2. Linda Acevedo, Corry NI, et al. Evaluation, treatment, and prevention of vitamin D deficiency: an Endocrine Society clinical practice guideline. JCEM. 2010; 96(7):1911-30. Performed at: [facility] [address] [place] [id number] Postal Support Employee: Sonali Lacey MD, Phone: [phone] Note: Persistent reduction for 3 months or more in an eGFR <60 mL/min/1.73 m2 defines CKD. Patients with eGFR values >/=60 mL/min/1.73 m2 may also have CKD if evidence of persistent proteinuria is present. The original MDRD equation for estimated GFR is not valid for patients less than 18 years of age. Additional information may be found at www.kdoqi.org. 30 Vitamin D deficiency has been defined by the [place] and an Endocrine Society practice guideline as a level of serum 25-OH vitamin D less than 20 ng/mL (1,2). The Endocrine Society went on to further define vitamin D insufficiency as a level between 21 and 29 ng/mL (2). 1. IOM ([place]). 2010. Dietary reference intakes for calcium and D. [place]: The National Academies Press. 2. Linda Acevedo, Corry NI, et al. Evaluation, treatment, and prevention of vitamin D deficiency: an Endocrine Society clinical practice guideline. JCEM. 2010; 96(7):1911-30. Performed at: RN - [facility] [address] [id number] Postal Support Employee: Sonlai Lacey MD, Phone: [phone] 31 Reference Guidelines*: Desirable: ........... < 200 mg/dL Borderline High: ..... 200-239 mg/dL High: ................ >=240 mg/dL * The National Cholesterol Education Program (NCEP) 32 Reference Guidelines*: Low HDL: ..... < 40 mg/dL Normal: ..... 40-60 mg/dL Desirable: ... > 60 mg/dL *The National Cholesterol Education Program(NCEP) 33 Reference Guidelines*: Optimal:........... <100 mg/dL Near Optimal....... 100-129 mg/dL Borderline High.... 130-159 mg/dL High............... 160-189 mg/dL Very High.......... >=190 mg/dL * Source: National Cholesterol Education Program (NCEP) 34 Reference Guidelines*: Normal: ............. < 150 mg/dL Borderline High: .... 150-199 mg/dL High: ............... 200-499 mg/dL Very High: .......... > 500 mg/dL * Source: National Cholesterol Education Program (NCEP) 35 Note: Persistent reduction for 3 months or more in an eGFR <60 mL/min/1.73 m2 defines CKD. Patients with eGFR values >/=60 mL/min/1.73 m2 may also have CKD if evidence of persistent proteinuria is present. The original MDRD equation for estimated GFR is not valid for patients less than 18 years of age. Additional information may be found at www.kdoqi.org. 36 Relative Risk for Future Cardiovascular Event Low <1.00 Average 1.00 - 3.00 High >3.00 37 Performed at: RN - [facility] [address] [id number] Postal Support Employee: Sonali Lacey MD, Phone: [phone] 38 Vitamin D deficiency has been defined by the [place] and an Endocrine Society practice guideline as a level of serum 25-OH vitamin D less than 20 ng/mL (1,2). The Endocrine Society went on to further define vitamin D insufficiency as a level between 21 and 29 ng/mL (2). 1. IOM ([place]). 2010. Dietary reference intakes for calcium and D. [place]: The National Academies Press. 2. Linda Acevedo, Corry NI et al. Evaluation, treatment, and prevention of vitamin D deficiency: an Endocrine Society clinical practice guideline. JCEM. 2010; 96(7):1911-30. Performed at: - [facility] [id number] Postal Support Employee: Sonali Lacey MD, Phone: [phone] Note: Persistent reduction for 3 months or more in an eGFR <60 mL/min/1.73 m2 defines CKD. Patients with eGFR values >/=60 mL/min/1.73 m2 may also have CKD if evidence of persistent proteinuria is present. The original MDRD equation for estimated GFR is not valid for patients less than 18 years of age. Additional information may be found at www.kdoqi.org. 40 NO BETA STREPTOCOCCI ISOLATED 41 Relative Risk for Future Cardiovascular Event Low <1.00 Average 1.00 - 3.00 High >3.00 42 Vitamin D deficiency has been defined by the [place] and an Endocrine Society practice guideline as a level of serum 25-OH vitamin D less than 20 ng/mL (1,2). The Endocrine Society went on to further define vitamin D insufficiency as a level between 21 and 29 ng/mL (2). 1. IOM ([place]). 2010. Dietary reference intakes for calcium and D. [place]: The National Academies Press. 2. Linda Acevedo, Corry NI et al. Evaluation, treatment, and prevention of vitamin D deficiency: an Endocrine Society clinical practice guideline. JCEM. 2010; 96(7):1911-30. Performed at: - [facility] [address] [id number] Postal Support Employee: Sonali Lacey MD, Phone: [phone] Note: Persistent reduction for 3 months or more in an eGFR <60 mL/min/1.73 m2 defines CKD. Patients with eGFR values >/=60 mL/min/1.73 m2 may also have CKD if evidence of persistent proteinuria is present. The original MDRD equation for estimated GFR is not valid for patients less than 18 years of age. Additional information may be found at www.kdoqi.org. 44 Because ethnic data is not always readily available, this report includes an eGFR for both -Americans and non- Americans. The National Kidney Disease Education Program (NKDEP) does not endorse the use of the MDRD equation for patients that are not between the ages of 18 and 70, are , have extremes of body size, muscle mass, or nutritional status, or are non- or non-. According to the National Kidney Foundation, irrespective of diagnosis, the stage of the disease is based on the level of kidney function: Stage Description GFR(mL/min/1.73 m(2)) 1 Kidney damage with normal or decreased GFR 90 2 Kidney damage with mild decrease in GFR 60-89 3 Moderate decrease in GFR 30-59 4 Severe decrease in GFR 15-29 5 Kidney failure <15 (or dialysis) 45 Vitamin D deficiency has been defined by the [place] and an Endocrine Society practice guideline as a level of serum 25-OH vitamin D less than 20 ng/mL (1,2). The Endocrine Society went on to further define vitamin D insufficiency as a level between 21 and 29 ng/mL (2). 1. IOM ([place]). 2010. Dietary reference intakes for calcium and D. [place]: The National Academies Press. 2. Jose Luis MF, Linda NC, Corry NI, et al. Evaluation, treatment, and prevention of vitamin D deficiency: an Endocrine Society clinical practice guideline. JCEM. 2010; 96(7):1911-30. Performed at: RN - [facility] [address] [id number] Postal Support Employee: Yogesh Jones MD, Phone: [phone] Note: Persistent reduction for 3 months or more in an eGFR <60 mL/min/1.73 m2 defines CKD. Patients with eGFR values >/=60 mL/min/1.73 m2 may also have CKD if evidence of persistent proteinuria is present. The original MDRD equation for estimated GFR is not valid for patients less than 18 years of age. Additional information may be found at www.kdoqi.org. 47 Vitamin D deficiency has been defined by the [place] and an Endocrine Society practice guideline as a level of serum 25-OH vitamin D less than 20 ng/mL (1,2). The Endocrine Society went on to further define vitamin D insufficiency as a level between 21 and 29 ng/mL (2). 1. IOM ([place]). 2011. Dietary reference intakes for calcium and D. [place]: The National Academies Press. 2. Jose Luis MF, Linda NC, Corry NI, et al. Evaluation, treatment, and prevention of vitamin D deficiency: an Endocrine Society clinical practice guideline. JCEM. 2010; 96(7):1911-30. Performed at: RN - [facility] [address] [id number] Postal Support Employee: Yogesh Jones MD, Phone: [phone] Procedures Date Code Description Status 12/19/2017 22771 Mammography Unilateral Completed 12/19/2017 [id number] Mammogram Completed 10/07/2017 [id number] Diabetic Retinal Eye Exam Completed 12/13/2016 90321 Bone Density Study, Single Photon Absorptiometry Completed 02/01/2015 [id number] Pure Tone Hearing Test, Air Completed 01/11/2013 20705 Pure Tone-Air Condition Only Completed 01/08/2012 53840 Visual funct screen test, automated Completed 01/08/2012 53303 Pure Tone-Air Condition Only Completed 05/20/2003 03074 EKG, Interpretation Only Completed Encounters Type Date Location Provider Dx Diagnosis Office Visit 08/24/2018 [facility] DEBORAH Woody J06.9 Acute upper 3:15p respiratory infection, unspecified J01.00 Acute maxillary sinusitis, unspecified R05 Cough L50.1 Idiopathic urticaria Plan of Treatment Future Appointment(s):10/19/2018 3:30 pm - Lance Cantrell MD at [facility]09/29/2018 - Lance Cantrell MDL20.9 Atopic dermatitis, unspecifiedNew Medication:Betamethasone Dipropionate 0.05 % - use two times a dayClotrimazole 1 % - use 3 times a day
[2018-09-30 16:10] VITALS: BP 134/70
--- NOTE | 2018-09-30 16:48 | ED ---
Upper Extremity Pain - HPI Summary HPI Summary: 63 yr old female with the complaint of left elbow pain. Onset of symptoms was 1430 this afternoon. The patient presents here with pain to the left elbow after tripping over an object and catching the elbow on a metal chair frame. She complains of pain over the lateral left elbow. Pain is moderate. Worse with supination. No other complaints. - History of Current Complaint Chief Complaint: UCUpperExtremity Stated Complaint: LEFT ELBOW INJURY Time Seen by Provider: 09/30/18 16:18 - Allergies/Home Medications Allergies/Adverse Reactions: Allergies Allergy/AdvReac Type Severity Reaction Status Date / Time No Known Allergies Allergy Verified 09/30/18 16:04 Home Medications: Home Medications amLODIPine TAB* [Norvasc 5 mg TAB*] 1 tab DAILY 09/30/18 [History Confirmed ] PMH/Surg Hx/FS Hx/Imm Hx Endocrine/Hematology History: Reports: Hx Thyroid Disease - Hypothyroidism Denies: Hx Diabetes Cardiovascular History: Reports: Hx Hypertension Respiratory History: Denies: Hx Asthma - Surgical History Surgery Procedure, Year, and Place: Lower Extremity Vein Cauterization and Removal, 2018, [place]; Right Oopherectomy, ~2003, [place] Infectious Disease History: No Infectious Disease History: Denies: Traveled Outside the [place] in Last 30 Days - Family History Known Family History: Positive: Hypertension, Non-Contributory - Social History Occupation: Employed Full-time Alcohol Use: Daily Alcohol Amount: 1-2 glasses of red wine Substance Use Type: Reports: None Smoking Status (MU): Former Smoker Type: Cigarettes Amount Used/How Often: 1/2-3/4 pack daily Length of Time of Smoking/Using Tobacco: ~1/2-3/4 PPD x 43 Years Have You Smoked in the Last Year: No Review of Systems Constitutional: Negative Positive: Other - left elbow pain All Other Systems Reviewed And Are Negative: Yes Physical Exam Triage Information Reviewed: Yes Vital Signs On Initial Exam: Initial Vitals Temp Pulse Resp BP Pulse Ox 98.6 F 61 16 134/70 97 09/30/18 16:07 09/30/18 16:07 09/30/18 16:07 09/30/18 16:07 09/30/18 16:07 Vital Signs Reviewed: Yes Appearance: Positive: Well-Appearing, No Pain Distress Skin: Positive: Warm, Skin Color Reflects Adequate Perfusion Head/Face: Positive: Normal Head/Face Inspection Eyes: Positive: EOMI ENT: Positive: Normal ENT inspection Neck: Positive: Nontender Respiratory/Lung Sounds: Positive: Clear to Auscultation Cardiovascular: Positive: Pulses are Symmetrical in both Upper and Lower Extremities Abdomen Description: Negative: Distended Musculoskeletal: Positive: Other - the elbows appear symmetric in appearance, there is tenderness over the left radial head, and pain worse on flexion and also supination. No bruising, no STS. Neurological: Positive: Sensory/Motor Intact, Alert, Oriented to Person Place, Time, CN Intact II-III, Normal Gait, Speech Normal Psychiatric: Positive: Normal Procedures - Splinting Left Upper Extremity Location: left upper and lower arm and down to the hand Hand-Made Type: orthoglass Splint: posterior long arm Pre-Proc Neuro Vasc Exam: normal Post-Proc Neuro Vasc Exam: normal Diagnostics - Vital Signs Vital Signs Temp Pulse Resp BP Pulse Ox 09/30/18 16:07 98.6 F 61 16 134/70 97 - Laboratory Lab Statement: Any lab studies that have been ordered have been reviewed, and results considered in the medical decision making process. - Radiology left elbow xray Radiology Interpretation Completed By: Radiologist - Depressed, comminuted radial head fracture. Course/Dx - Course Course Of Treatment: 63 yr old female with left elbow pain after fall. Long arm splint applied by me. - Diagnoses Provider Diagnoses: Fracture of radial head, left, closed, Comminuted fracture, Displaced fracture Discharge - Sign-Out/Discharge Documenting (check all that apply): Patient Departure All imaging exams completed and their final reports reviewed: Yes - Discharge Plan Condition: Good Disposition: HOME Patient Education Materials: Elbow Fracture (ED) Referrals: Lance Cantrell MD [Primary Care Provider] - Emanuel Roldan MD [Medical Doctor] - 1 Day - Billing Disposition and Condition Condition: GOOD Disposition: Home
== END 2018-09-30 17:24 | disposition home or self-care (01) ==
LOC: UCCORT 15:35
DX: S52.122A Displaced fracture of head of left radius, initial encounter for closed fracture (principal); W01.190A Fall on same level from slipping, tripping and stumbling with subsequent striking against furniture, initial encounter; Y92.9 Unspecified place or not applicable; E03.9 Hypothyroidism, unspecified; I10 Essential (primary) hypertension; Z87.891 Personal history of nicotine dependence
CPT/HCPCS: 99212; G0463

== ENCOUNTER → 2018-10-09 06:40 | Day surgery (SDC) | payer OTHER ==
[~2018-10-09 06:40] MED LIST: Buffered Lidocaine 1% SYRIN* 1 ML/SYRINGE INTRADERM ONE; Bupivacaine 0.25% SDV PF* 10 ML VIAL INJ ONE; Dexamethasone IV* 4 MG/ML 1 ML (4 MG) ONE; HYDROmorphone INJ1* 1 MG/ML SYRINGE IV PRN; Ketorolac INJ* 30 MG/ML 1 ML VIAL ONE; Lactated Ringers 1000 ML Bag* 1,000 ML IV SCH; Midazolam* 1 MG/ML 5 ML VIAL (5 MG) ONE; Naloxone* 0.4 MG/ML 1 ML VIAL IV PRN; Ondansetron INJ* 2 MG/ML VIAL IV PRN; Ondansetron INJ* 2 MG/ML VIAL ONE; Propofol* 10 MG/ML 20 ML BTL ONE; Rocuronium* 10 MG/ML VIAL ONE; ceFAZolin 2 GM PREMIX in ORs 2 GM/50 ML BAG IVPB ONE; fentaNYL* 50 MCG/ML 2 ML VIAL (100 MCG VIAL) IV PRN; fentaNYL* 50 MCG/ML 2 ML VIAL (100 MCG VIAL) ONE; oxyCODONE/Acetamin 5/325 MG* TAB ONE; oxyCODONE/Acetamin 5/325 MG* TAB PO PRN
[2018-10-09 12:42] VITALS: BP 138/80
--- NOTE | 2018-10-09 14:00 | OP ---
OPERATIVE REPORT: DATE OF OPERATION: 10/09/18 DATE OF : 55 SURGEON: Yogesh Bryan MD SUPERINTENDENT MEASUREMENT: DEBORAH Michael. PRE-OP DIAGNOSIS: Left displaced impacted radial head fracture. POST-OP DIAGNOSIS: Left displaced impacted radial head fracture. OPERATIVE PROCEDURE: Open reduction and internal fixation of left radial head fracture with allograf t bone grafting. INDICATIONS: Lois is 63 years old. She had the fracture that is very impacted, very displaced. We had talked about her options. I thought that given the fact it looked like it was partial articu lar and that it would be fixable, I told her I would have the radial head replacement available just in case. She agreed and wanted to proceed with surgery. She understands there is a risk of neurovas cular injury and other surgical risks such as infection, risk of nonunion, malunion and need for subs equent either radial head replacement or radial head resection at some point in the future. ESTIMATED BLOOD LOSS: 10 mL. COMPLICATIONS: None. FINDINGS: See above and below. DESCRIPTION OF PROCEDURE: Lois was seen in the preoperative holding area. The correct site, mirella e, and procedure were identified. We came back to the operating room where the arm was prepped and d raped in the usual fashion and time-out was performed. The arm was exsanguinated with the Esmarch and the tourniquet was inflated to 250 mmHg. The patient was positioned supine using the arm board. I went ahead and made an incision over the lateral elbow, centered over the lateral epicondyle. Dissection was carried down. She did have a somewhat thicker arm. I got down to the fascia and raised full-thickness flaps off the fascia. I then went through t he equator of the radial head and stayed anterior to that as I performed an arthrotomy, which I then brought back over the anterior aspect of the lateral epicondyle to preserve the lateral ulnar collate ral ligament. Hemarthrosis was aspirated. The fracture hematoma was cleaned up. The fracture did i nvolve the anterior half of the radial head; however, there was 1 piece that was much larger than the other small piece of comminution. I went ahead and placed an osteotome through the impacted section and released that and then elevated the radial head back up. I packed cancellous bone allograft chi ps in the defect created. I then held things in place with a couple of 0.8 mm K-wires of the Synthes variable angle handset. I then took a 2.0 mm T-plate and contoured that and bent that to the approp riate shape. I first secured the plate with a couple of 2.0 variable angle locking screws distally. I was able to get 2 of the 3 distal holes through the fragment. The plate was then secured proximal ly with cortical screws. I then filled the remaining proximal hole with a variable angle locking scr ew. Care was taken to preserve the posterior interosseous nerve as the dissection was carried down t hrough the supinators. This was done in pronation and very carefully so as to not injure that denier control operator ior interosseous nerve. I had placed baby Hohmann retractor around the anterior aspect of the radial neck, but it was placed very carefully so as again not to injure the nerve. After I had the plate i n place and the fixation was good, I had a little bit more bony fragment anteriorly that I could plac e another screw through and so I placed another countersunk Synthes 2.0 cortical screw there. Again, it was countersunk, so was below the joint surface so as not to cause any impingement or problems wi th the joint. The plate was placed in the safe zone. I was able to pronate and supinate fully witho ut any impingement of the plate after all the fixation was done. The wound was irrigated out copious ly. Again, the graft was checked and there was plenty of good graft packed into the bony defect. Th e lateral soft tissue structures including annular ligament were closed with an 0 Vicryl suture. The fascia was closed with 0 Vicryl suture, the subcutaneous tissue was reapproximated with 3-0 Vicryl s uture and the skin was closed with 3-0 nylon suture. 30 mL of 0.25% Marcaine were infiltrated out on the operative area. The wound was dressed with Xeroform, 4x4s, ABDs, sterile Webril and then a long arm splint with a lateral buttress was applied. She was taken to the recovery room in stable condit ion. [id number]/[facility] #: [id number]
== END | disposition home or self-care (01) ==
LOC: OR 06:40
PROVIDERS: ATTEND Orthopaedic Surgery Hand Surgery
DX: S52.122A Displaced fracture of head of left radius, initial encounter for closed fracture (principal); I10 Essential (primary) hypertension; J45.909 Unspecified asthma, uncomplicated; Z87.891 Personal history of nicotine dependence; E03.9 Hypothyroidism, unspecified; W01.190A Fall on same level from slipping, tripping and stumbling with subsequent striking against furniture, initial encounter; Y92.219 Unspecified school as the place of occurrence of the external cause; Y99.0 Civilian activity done for income or pay
CPT/HCPCS: 76000; A9270-GY; C1713; C1776; J0690; J1100; J1885; J2250; J2405; J2704; J3010; J3490

== ENCOUNTER 2019-05-08 09:50 | Emergency (ER) | payer BC ==
--- NOTE | 2019-05-08 10:20 | UC ---
Throat Pain/Nasal [place] HPI - HPI Summary HPI Summary: 63 y/o female presents to the urgent care c/o sinus congestion w/ yellowish nasal discharge, sinus pressure and dry cough for the past 10 days. She has been taken OTC medications w/o any improvement. Today she woke up w/ RT ear pain. Pain is 4/10. Pt denies fever, SOB,wheezing, dizziness, chest pain, abdominal pain, N/V/D. - History of Current Complaint Stated Complaint: SINUS COMPLAINT Time Seen by Provider: 05/08/19 10:19 Hx Obtained From: Patient Onset/Duration: Gradual Onset, Lasting Days - 10 days, Still Present, Worse Since - 2 days Severity: Moderate Pain Intensity: 4 - RT ear pain Pain Scale Used: 0-10 Numeric Cough: Nonproductive Associated Signs & Symptoms: Positive: Sinus Discomfort, Nasal Discharge - yellowish. Negative: Wheezing - Epiglottits Risk Factors Epiglottis Risk Factors: Negative - Allergies/Home Medications Allergies/Adverse Reactions: Allergies Allergy/AdvReac Type Severity Reaction Status Date / Time morphine Allergy Severe STOPPED Verified 05/08/19 10:19 BREATHING PMH/Surg Hx/FS Hx/Imm Hx Previously Healthy: Yes Endocrine History: Hypothyroidism Cardiovascular History: Hypertension - Surgical History Surgical History: Yes Surgery Procedure, Year, and Place: Lower Extremity Vein Cauterization and Removal, 2018, [place]. Right Oopherectomy, ~2003, - Family History Known Family History: Positive: Hypertension Family History: hypothyrodism - Social History Occupation: Employed Full-time Lives: With Family Alcohol Use: Daily Alcohol Amount: 1-2 glasses of red wine Substance Use Type: None Smoking Status (MU): Former Smoker Type: Cigarettes Amount Used/How Often: 1/2-3/4 pack daily for 38+ yrs Length of Time of Smoking/Using Tobacco: 38+ Have You Smoked in the Last Year: No When Did the Patient Quit Smoking/Using Tobacco: 07/2017 Review of Systems All Other Systems Reviewed And Are Negative: Yes Constitutional: Positive: Negative Skin: Positive: Negative Eyes: Positive: Negative ENT: Positive: Ear Ache - RT ear pain, Nasal Discharge, Sinus Congestion, Sinus Pain/Tenderness, Other - moderate yellowish PND Respiratory: Positive: Cough - dry Cardiovascular: Positive: Negative Gastrointestinal: Positive: Negative Genitourinary: Positive: Negative Motor: Positive: Negative Neurovascular: Positive: Negative Musculoskeletal: Positive: Negative Neurological: Positive: Headache Psychological: Positive: Negative Is Patient Immunocompromised?: No Physical Exam - Summary Physical Exam Summary: Vitals: reviewed General: Well developed, well-nourished male patient with NAD. Head and face: Normocephalic and atraumatic, Positive tenderness over the frontal and maxillary sinuses.. Eyes: PERRLA, EOMI x 2. Normal conjunctiva. No eye discharge. ENT: Ears and TM with normal limits. Nose: edematous and erythematous nasal mucosa with with yellowish discharge and erythematous mucosa. Pharynx with erythema, no exudate. moderate yellowish PND Neck: Supple, no JVD, no carotid bruits and no lymphadenopathy. Lungs: clear, no rales, no rhonchi, no wheezes. CVS: RRR, S1 and S2 present no murmurs or gallops appreciated. Abdomen: soft nontender with positive bowel sounds. Extremities: no edema noted. Neuro: WNL. Skin: warm and dry Triage Information Reviewed: Yes Throat Pain/Nasal Course/Dx - Course Course Of Treatment: 63 y/o female presents to the urgent care c/o sinus congestion w/ yellowish nasal discharge, sinus pressure and dry cough for the past 10 days. She has been taken OTC medications w/o any improvement. Today she woke up w/ RT ear pain. Pain is 4/10. Pt denies fever, SOB,wheezing, dizziness, chest pain, abdominal pain, N/V/D. Hx obtained. Pt w/ acute bacterial sinusitis on examination. Pt with 10 days of symptoms getting worse. Pt Rx Amoxicillin PO and flonase nasal spray. Tessalon PO for cough. Discharge instructions explained to Pt. Advised to Return to the clinic or PCP if symptoms do not improve.Pt understood and agreed with plan of care. - Differential Dx/Diagnosis Differential Diagnosis/HQI/PQRI: Influenza, Otitis Media, Pharyngitis, Sinusitis , Tonsillitis, URI Provider Diagnosis: Acute bacterial sinusitis, Cough Discharge ED - Sign-Out/Discharge Documenting (check all that apply): Patient Departure - D/C home All imaging exams completed and their final reports reviewed: No Studies - Discharge Plan Condition: Stable Disposition: HOME Prescriptions: Amoxicillin PO (*) [Amoxicillin 875 MG (*)] 875 mg PO BID #20 tab Benzonatate CAP* [Tessalon 100 MG CAP*] 100 mg PO TID PRN #21 cap PRN Reason: Cough Fluticasone NASAL SPRAY 50MCG* [Flonase NASAL SPRAY 50MCG*] 2 spray BOTH NARES DAILY #1 btl Patient Education Materials: Sinusitis (ED) Referrals: Lance Cantrell MD [Primary Care Provider] - 3 Days Additional Instructions: 1- Please increase fluid intake and rest. take full course of antibiotics to avoid resistance. Take yogurts w/ probiotics or Culturelle to protect your GI system 2-Use Flonase as directed to help drain fluid. Also buy saline drops to clear sinuses 3-Take Tessalon tabs PO as directed to alleviates sinus congestion 4-Please f/u w/ your PCP in 3 days if symptoms do not improve for further management and treatment - Billing Disposition and Condition Condition: STABLE Disposition: Home
[2019-05-08 10:31] VITALS: BP 126/76
== END 2019-05-08 11:09 | disposition home or self-care (01) ==
LOC: UCCORT 09:50
DX: J01.90 Acute sinusitis, unspecified (principal); R05 Cough; I10 Essential (primary) hypertension; B96.89 Other specified bacterial agents as the cause of diseases classified elsewhere; Z87.891 Personal history of nicotine dependence; Z88.5 Allergy status to narcotic agent
CPT/HCPCS: 99212; G0463

== ENCOUNTER 2019-08-18 11:16 | Emergency (ER) | payer BC, OTHER ==
--- OUTSIDE RECORDS SUMMARY | 2019-08-18 13:15 | XMS REPORT | Continuity of Care Document ---
:1955 External Reference #:[id number] Author Name DEBORAH Ashby (transmitted by agent of provider Kamryn Phelps) Address [address] [place] [address] Care Team Providers Name Role Phone Bryan Naranjo MD - Obstetrics & Care Team Information Student Gynecology Yogesh Bryan MD - Hand Surgery Care Team Information Student Lois Macedo RPA - Medical Care Team Information Student [phone] Problems Active Problems Provider Date Osteoarthritis Onset: 04/22/2011 Note: S-I joints, knees Essential hypertension Onset: 04/22/2011 Asthma without status asthmaticus Onset: 04/22/2011 Shoulder joint pain Onset: 04/22/2011 Disorder of bursa of shoulder region Onset: 04/22/2011 Goiter Onset: 04/22/2011 Closed fracture of head of radius Yogesh Bryan MD Onset: 10/02/2018 Hypothyroidism DEBORAH Ashby Onset: 06/19/2019 Adrenal adenoma DEBORAH Ashby Onset: 06/19/2019 Note: right, noted on CT 2011 Degeneration of cervical intervertebral disc DEBORAH Ashby Onset: 04/2020 Note: and dorsal Vitamin D deficiency DEBORAH Ashby Onset: 06/19/2019 Microscopic hematuria DEBORAH Ashby Onset: 06/24/2019 Note: urogram normal 2011 Social History Type Date Description Comments Sex Unknown Tobacco Use Start: Unknown Smoked for 40 yrs (1- Quit 2017 ppd) ETOH Use Consumes 1 bottle of 2-3 glasses per wine per week evening Tobacco Use Start: Unknown End: Patient is a former Unknown smoker Smoking Status Reviewed: 06/24/19 Patient is a former smoker Exercise Exercises regularly Type/Frequency Allergies, Adverse Reactions, Alerts Description No Known Drug Allergies Medications Active Medications SIG Qnty Indications Ordering Date Provider Ibuprofen 200 400-600mg Lance 10/28/2018 200mg Tablets every 6 hours MD Óscar as needed for pain. Hydrochlorothiazide 1 by mouth 90tabs I10 Lance 12/30/2017 50mg Tablets every day MD Óscar Bystolic 1 by mouth 30tabs I10 12/30/2017 10mg Tablets every day MD Óscar Amlodipine Besylate 1 by mouth 90tabs I10 Lance 02/03/2017 5mg Tablets every day MD Óscar Levothyroxine Sodium 1 by mouth 90tabs E03.9 01/04/2016 175mcg Tablets every day MD Óscar Vitamin D3 1 by mouth 30tabs E55.9 Lance 01/04/2016 5000Unit Tablets every day MD Óscar Potassium Chloride ER 1 every day 90tabs I10 Lance 07/10/2011 10Meq Tablets MD Óscar ER Aspir-81 1 po qd 90tabs Lance 06/17/[address] Óscar MD [place] 3 1 tab by Unknown 1000mg Capsules mouth twice a day Vitamin C 1 by mouth Unknown 500mg Capsules every day Medications Administered in Office Medication SIG Qnty Indications Ordering Provider Date Depomedrol 40MG Emanuel Roldan MD 01/25/2019 Injection Depomedrol 40MG Emanuel Roldan MD 01/25/2019 Injection Immunizations CPT Code Status Date Vaccine Lot # [id number] Given 06/24/2019 Pneumonia Vaccine [id number] 99475 Given 03/14/2019 Influenza Virus Vaccine, Quadrivalent, Split, Preservative Free 60966 Given 02/01/2015 Pneumococcal Conjugate Vaccine 13 Valent For Intramuscular Use 83466 Given 03/23/2014 Influenza Virus 3Yrs & Over 44206 Given 05/31/2013 Influenza Virus 3Yrs & Over 57830 Given 02/24/2012 Influenza Virus 3Yrs & Over 44764 Given 06/17/2011 Tdap - Tetanus/Diptheria/Acellular Pertussis 91621 Given 03/04/2011 Influenza Virus 3Yrs & Over 85669 Given 03/08/2010 Influenza Virus 3Yrs & Over 52397 Given 03/13/2009 Influenza Virus 3Yrs & Over 59037 Given 05/12/2008 Influenza Virus 3Yrs & Over 49024 Given 04/15/2007 Influenza Virus 3Yrs & Over 73470 Given 08/04/2006 Influenza Virus 3Yrs & Over 80728 Given 06/22/2003 Influenza Virus 3Yrs & Over Vital Signs Date Vital Result Comment 06/24/2019 1:13pm Height 66 inches 5'6" Weight 244.50 lb Heart Rate 66 /min BP Systolic Sitting 136 mmHg BP Diastolic Sitting 82 mmHg O2 % BldC Oximetry 97 % BMI (Body Mass Index) 39.5 kg/m2 01/25/2019 1:27pm Height 66 inches 5'6" Weight 237.31 lb Heart Rate 69 /min BP Systolic Sitting 138 mmHg BP Diastolic Sitting 88 mmHg Respiratory Rate 14 /min O2 % BldC Oximetry 95 % BMI (Body Mass Index) 38.3 kg/m2 Results Test Acquired Date Facility Test Result H/L Range Note Laboratory test 06/24/2019 [facility] Cytology <pending> finding [address] [place] [address] [phone] Ua Routine 06/24/2019 Project [facility] Director In House Ua Specific 1.010 [place] Ua PH 5 Ua Color clear Ua Appera clear Ua WBC neg. Ua Protein neg Ua Glucose neg. Ua Ketones neg. Ua Bilirubin neg. Ua Urobilinogen neg. Ua Nitrite neg. Ua Occult Blood +1 Procedures Date Code Description Status 01/25/2019 41800 Xray Knee 3 Views Completed 01/25/2019 44972 Inject/Drain Joint/Bursa Major W/O US Completed 01/22/2019 86931 Rad Exam; Elbow, Comp Completed 12/19/2017 [id number] Mammogram Completed 10/07/2017 [id number] Diabetic Retinal Eye Exam Completed Medical Devices Description No Information Available Encounters Type Date Location Provider Dx Diagnosis Office Visit 01/25/2019 [facility] Emanuel Roldan, M17.0 Bilateral primary 1:30p at [facility] osteoarthritis of knee M25.561 Pain in right knee M25.562 Pain in left knee Office Visit 01/22/2019 8:15a [facility] Yogesh S52.122D Disp fx of at [facility] Bryan MD head of left rad, subs for clos fx w routn heal S52.122A Disp fx of head of left radius, init for clos fx Office Visit 01/20/2019 Project Engineering Director Primary Lance M22.2x1 Patellofemoral 10:30a Dacia Cantrell MD disorders, right knee M22.2x2 Patellofemoral disorders, left knee M25.472 Effusion, left ankle Assessments Date Code Description Provider 06/24/2019 R31.21 Asymptomatic microscopic hematuria Lois Macedo, PA 06/24/2019 I10 Essential (primary) hypertension Lois Macedo PA 06/24/2019 E03.9 Hypothyroidism, unspecified Lois [place], PA 06/24/2019 Z00.00 Encounter for general adult medical DEBORAH Ashby examination without abnormal findings 06/24/2019 M17.0 Bilateral primary osteoarthritis of knee Lois Macedo, PA 06/24/2019 Z12.31 Encounter for screening mammogram for DEBORAH Ashby malignant neoplasm of breast 06/24/2019 Z23 Encounter for immunization Lois Macedo PA 01/25/2019 M17.0 Bilateral primary osteoarthritis of knee Emanuel Roldan MD 01/25/2019 M25.561 Pain in right knee Emanuel Roldan MD 01/25/2019 M25.562 Pain in left knee Emanuel Roldan MD 01/22/2019 S52.122D Displaced fracture of head of left radius, Yogesh Bryan MD subsequent encoun 01/22/2019 S52.122A Displaced fracture of head of left radius, Yogesh Bryan MD initial encounter for closed fracture 01/20/2019 M22.2x1 Patellofemoral disorders, right knee Lance Cantrell MD 01/20/2019 M22.2x2 Patellofemoral disorders, left knee Lance Cantrell MD 01/20/2019 M25.472 Effusion, left ankle Lance Cantrell MD Plan of Treatment 06/24/2019 - Lois Hellen, PAR31.21 Asymptomatic microscopic hematuriaNew Labs:Ua Routine, Ordered: 06/24/19Comments:Known, has been evaluated by [id number] Essential (primary) [id number] Hypothyroidism, unspecifiedComments:Current supplementation: LT 175mcg pujwbI16.00 Encounter for general adult medical examination without abnormal findingsComments: Discussed preventive measures (colonoscopy, LD CT scan of lungs) declines atM17.0 Bilateral primary osteoarthritis of kneeNew Therapy:Physical therapy @ 11;45Z12.31 Encounter for screening mammogram for malignant neoplasm of breastNew Xrays:Mammogram Screening Behzad, Ordered: 06/24/19Mammogram Screening Behzad, Scheduled: 06/24/19Z23 Encounter for immunizationComments:Pneumovax 23 administered today. Functional Status Description No Information Available Mental Status Description No Information Available Referrals Description No Information Available
[2019-08-18 13:31] VITALS: BP 120/75
--- NOTE | 2019-08-18 14:29 | UC ---
Skin Complaint HPI - HPI Summary HPI Summary: 64 yo with rash on arms and legs x 10 days. This is severely pruritic to the point of excoriation. She has not been using topical meds, although she brings along ol scripts for an antifungal and a steroid cream, but she has not use either of them. She has not used topicals, benadryl, or other antihistamines. She has had no change in medications, and has used no new products. Aside from the itchy rash, she has a large area on the anterolateral aguirre which is erythematous with an irregular rim. This area has underlying atrophy of the suporting tissues. She is not diabetic. - History of Current Complaint Chief Complaint: UCRash Time Seen by Provider: 08/18/19 14:10 Stated Complaint: RASH Hx Obtained From: Patient Onset/Duration: Gradual Onset, Lasting Weeks Timing: Constant Onset Severity: Mild Current Severity: Moderate Pain Intensity: 0 Location: Diffuse Aggravating Factor(s): Clothing Alleviating Factor(s): Nothing Associated Signs & Symptoms: Positive: Negative - Allergy/Home Medications Allergies/Adverse Reactions: Allergies Allergy/AdvReac Type Severity Reaction Status Date / Time morphine Allergy Severe STOPPED Verified 08/18/19 13:16 BREATHING Home Medications: Home Medications Aspirin [Aspir 81] 81 mg PO QAM 05/14/13 [History Confirmed 08/18/19] Levothyroxine TAB* [Synthroid 125 MCG TAB*] 175 mcg PO DAILY 05/14/13 [History Confirmed 08/18/19] Hydrochlorothiazide TAB* [Hydrodiuril TAB*] 50 mg PO QAM 11/10/16 [History Confirmed 08/18/19] Acme-3/Dha/Epa/Fish Oil [Fish Oil 1,000 mg Softgel] 1,000 mg PO DAILY 11/10/16 [History Confirmed 08/18/19] Potassium Chlor TAB* [Klor Con ER TAB 10 MEQ*] 10 meq PO QAM 11/10/16 [History Confirmed 08/18/19] Ibuprofen TAB* [Motrin TAB* 400 MG] 400 mg PO Q6H PRN 07/24/18 [History Confirmed 08/18/19] Nebivolol HCl [Bystolic] 10 mg PO DAILY 07/24/18 [History Confirmed 08/18/19] Cholecalciferol CAP/TAB(NF) [Vitamin D3 CAP/TAB (NF)] 5,000 unit PO QAM [History Confirmed 08/18/19] amLODIPine TAB* [Norvasc 5 mg TAB*] 1 tab PO QAM 09/30/18 [History Confirmed 04/28] Ascorbic Acid TAB* [Vitamin C TAB*] 500 mg PO DAILY 08/18/19 [History Confirmed 08/18/19] Triamcinolone 0.5% CREAM(NF) [Triamcinolone 0.5% CREAM*] 1 applic TOPICAL TID PRN #60 gm 08/18/19 [Rx] PMH/Surg Hx/FS Hx/Imm Hx Endocrine History: Hypothyroidism Cardiovascular History: Hypertension - Surgical History Surgical History: Yes Surgery Procedure, Year, and Place: Lower Extremity Vein Cauterization and Removal, 2017, [place]. Right Oopherectomy, ~2003, [place]. left elbow fracture with hardwear, bone Transfusion" - Family History Known Family History: Positive: Hypertension Family History: hypothyrodism - Social History Occupation: Retired Lives: With Family Alcohol Use: Daily Alcohol Amount: 1-2 glasses of red wine Substance Use Type: None Smoking Status (MU): Former Smoker Type: Cigarettes Amount Used/How Often: 1/2-3/4 pack daily for 38+ yrs Length of Time of Smoking/Using Tobacco: 38+ Have You Smoked in the Last Year: No When Did the Patient Quit Smoking/Using Tobacco: 07/2017 Review of Systems All Other Systems Reviewed And Are Negative: Yes Constitutional: Positive: Negative Skin: Positive: Rash Eyes: Positive: Negative ENT: Positive: Negative Respiratory: Positive: Negative Cardiovascular: Positive: Negative Gastrointestinal: Positive: Negative Genitourinary: Positive: Negative Motor: Positive: Negative Neurovascular: Positive: Negative Musculoskeletal: Positive: Negative Neurological/Mental Status: Positive: Negative Physical Exam Triage Information Reviewed: Yes Appearance: Well-Appearing, No Pain Distress, Obese Vital Signs: Initial Vital Signs Temp 98.9 F 08/18/19 13:21 Pulse 63 08/18/19 13:21 Resp 17 08/18/19 13:21 BP 120/75 08/18/19 13:21 Pulse Ox 99 08/18/19 13:21 ENT: Positive: Pharynx normal Neck: Positive: Supple, Nontender, No Lymphadenopathy Respiratory: Positive: Lungs clear, Normal breath sounds Cardiovascular: Positive: RRR, No Murmur Musculoskeletal Exam: Normal Neurological Exam: Normal Skin Exam: Other - raised erythematous plaques on both arms, in elbow area, around knees. right foreleg with erythematous patch with irreg margins with atrophy Course/Dx - Course Course Of Treatment: steroid cream and benadryl for relief of rash. This could be eczematous, but raised the issue that this could be a drug reaction to one of her older medications. Discussed that the rash on her foreleg is a different etiology and I advised a derm consult for evaluation given the appearance of lipoid necrosis and atriphy. - Differential Diagnoses - Skin Complaint Differential Diagnoses: Cellulitis, Contact Dermatitis - Diagnoses Provider Diagnosis: Dermatitis Discharge ED - Sign-Out/Discharge Documenting (check all that apply): Patient Departure All imaging exams completed and their final reports reviewed: No Studies - Discharge Plan Condition: Stable Disposition: HOME Prescriptions: Triamcinolone 0.5% CREAM(NF) [Triamcinolone 0.5% CREAM*] 1 applic TOPICAL TID PRN #60 gm PRN Reason: Rash Patient Education Materials: Dermatitis (ED) Referrals: Lois Macedo PA [Primary Care Provider] - Bettie Ascencio [Medical Doctor] - Additional Instructions: The rash which you have is a non-specific dermatitis. It is possible that it will respond to the topical steroid, along with use of benadryl. It is possible that it is a drug reaction to one of your medications, although none of your medications have been started recently. Use benadryl 25mg at bedtime to relieve itch. Continue use of neutral soaps and moisturizers. Follow up with dermatology regarding the rash on the right leg, which is a different rash and needs evaluation by dermatology. - Billing Disposition and Condition Condition: STABLE Disposition: Home
== END 2019-08-18 14:50 | disposition home or self-care (01) ==
LOC: UCCORT 11:16
DX: L30.9 Dermatitis, unspecified (principal); I10 Essential (primary) hypertension; E03.9 Hypothyroidism, unspecified; Z88.5 Allergy status to narcotic agent; Z79.82 Long term (current) use of aspirin; Z79.890 Hormone replacement therapy; Z87.891 Personal history of nicotine dependence
CPT/HCPCS: 99212; G0463

== ENCOUNTER 2021-10-25 11:55 | Observation (INO) ==
[~2021-10-25 11:55] MED LIST changes: +Buffered Lidocaine 1% SYRIN 1 ml INTRADERM ONE; -Buffered Lidocaine 1% SYRIN* 1 ML/SYRINGE INTRADERM ONE; -Bupivacaine 0.25% SDV PF* 10 ML VIAL INJ ONE; -Dexamethasone IV* 4 MG/ML 1 ML (4 MG) ONE; +HYDROcodone/ACETAMIN 5/325 mg TAB PO PRN; -HYDROmorphone INJ1* 1 MG/ML SYRINGE IV PRN; -Ketorolac INJ* 30 MG/ML 1 ML VIAL ONE; -Lactated Ringers 1000 ML Bag* 1,000 ML IV SCH; +Lactated Ringers 1000 ml BAG 1,000 ML IV SCH; +Metoclopramide 5 MG/ML VIAL (10 mg) IV PRN; -Midazolam* 1 MG/ML 5 ML VIAL (5 MG) ONE; +Naloxone 0.4 mg VIAL 0.4 mg/ml 1 ml VIAL IV PRN; -Naloxone* 0.4 MG/ML 1 ML VIAL IV PRN; +Ondansetron 4 mg VIAL 2 MG/ML 2 ml VIAL IV PRN; -Ondansetron INJ* 2 MG/ML VIAL IV PRN; -Ondansetron INJ* 2 MG/ML VIAL ONE; -Propofol* 10 MG/ML 20 ML BTL ONE; -Rocuronium* 10 MG/ML VIAL ONE; -ceFAZolin 2 GM PREMIX in ORs 2 GM/50 ML BAG IVPB ONE; +fentaNYL 100 mcg/2 ml 50 MCG/ML VIAL IV PRN; -fentaNYL* 50 MCG/ML 2 ML VIAL (100 MCG VIAL) IV PRN; -fentaNYL* 50 MCG/ML 2 ML VIAL (100 MCG VIAL) ONE; -oxyCODONE/Acetamin 5/325 MG* TAB ONE; -oxyCODONE/Acetamin 5/325 MG* TAB PO PRN
[2021-10-25] MEDS ORDERED: fentaNYL 100 mcg/2 ml 50 MCG/ML VIAL ONE ×2 (14:01→17:08)
[2021-10-25] MEDS ORDERED: Dexamethasone IV 4 MG/ML VIAL 1 ml VIAL ONE ×4 (14:01→16:40)
[2021-10-25] MEDS ORDERED: Midazolam 2 mg/2 ml VIAL 1 mg/ml 2 ml VIAL (2 mg) ONE (14:01)
[2021-10-25] MEDS ORDERED: ROPIVACAINE 5 MG/ML 30 ML BTL (0.5%) ONE ×2 (14:01→14:23)
[2021-10-25] MEDS ORDERED: Ondansetron 4 mg VIAL 2 MG/ML 2 ml VIAL ONE (14:26)
[2021-10-25] MEDS ORDERED: Phenylephrine IV 10 MG/ML 1 ml VIAL ONE (15:17)
[2021-10-25] MEDS ORDERED: Lactulose 30 ml UDC PO PRN (15:38)
[2021-10-25] MEDS ORDERED: Ondansetron ODT 4 mg TAB 4 MG TAB PO PRN (15:38)
[2021-10-25] MEDS ORDERED: Ondansetron 4 mg VIAL 2 MG/ML 2 ml VIAL IV PRN (15:38)
[2021-10-25] MEDS ORDERED: Magnesium Hydroxide LIQ 30 ML UDC PO PRN (15:38)
[2021-10-25] MEDS ORDERED: Lactated Ringers 1000 ml BAG 1,000 ML IV SCH (16:00)
[2021-10-25] MEDS ORDERED: HYDROmorphone 0.5 MG/0.5 ML SYRINGE IV PRN (16:08)
[2021-10-25] MEDS ORDERED: Propofol 10 MG/ML 20 ML BTL ONE ×3 (16:37→16:58)
[2021-10-25] MEDS ORDERED: Desflurane 240 ML INH ONE (16:41)
[2021-10-25] MEDS: Magnesium Hydroxide LIQ 30 ML UDC PO SCH (21:55)
[2021-10-25] MEDS: ceFAZolin 1 GM ADVAN 1 GM in NS 0.9% 50 ML 50 ML IVPB SCH (23:14)
[2021-10-26 06:06] LABS: Hematocrit 37 % (35-47); Hemoglobin 12.1 g/dL (12.0-16.0); Mean Platelet Volume 8.3 fL (7.4-10.4); Platelet Count 264 10^3/uL (150-450)
[2021-10-26 06:26] LABS: Calcium 8.5 mg/dL (8.6-10.3); Potassium 3.8 mmol/L (3.5-5.0)
[2021-10-26] MEDS: ceFAZolin 1 GM ADVAN 1 GM in NS 0.9% 50 ML 50 ML IVPB SCH ×2 (07:40→14:00)
[2021-10-26] MEDS: Magnesium Hydroxide LIQ 30 ML UDC PO SCH (07:53)
[2021-10-26] MEDS ORDERED: Nebivolol 10 mg TAB (NF) PO SCH (09:00)
[2021-10-26] MEDS ORDERED: Vitamin THERAPEUTIC TAB PO SCH (09:00)
[2021-10-26] MEDS ORDERED: Potassium Chlor 10 meq TAB PO SCH (09:00)
[2021-10-26 11:23] VITALS: BP 105/70
== END 2021-10-26 14:44 | disposition home or self-care (01) ==
LOC: OR 11:55 → SSU 11:55
PROVIDERS: ADMIT Orthopaedic Surgery Adult Reconstructive Orthopaedic Surgery; ATTEND Orthopaedic Surgery Adult Reconstructive Orthopaedic Surgery